=== PATIENT | male | born 1960 | race African-American/Black ===

== ENCOUNTER 2017-07-15 18:14 | Emergency (ER) | payer MEDICAID ==
[~2017-07-15] VITALS: Ht 185.4 cm; Wt 92.0 kg
[2017-07-15] MEDS ORDERED: BENA20TA3 PO (18:30)
[2017-07-15] MEDS ORDERED: HYDR-523 PO (18:30)
[2017-07-16] MEDS ORDERED: ACETAMINOPHEN WITH CODEINE 300/30MG TABLET PO ONE (00:45)
[2017-07-16 01:55] VITALS: BP 117/76
== END 2017-07-16 01:55 | disposition home or self-care (01) ==
LOC: ER 20:24
DX: M70.21 Olecranon bursitis, right elbow (principal); I10 Essential (primary) hypertension; F17.200 Nicotine dependence, unspecified, uncomplicated; Z86.73 Personal history of transient ischemic attack (TIA), and cerebral infarction without residual deficits
CPT/HCPCS: 73080; 99284